=== PATIENT | male | born 2000 | race Caucasian/White ===

== ENCOUNTER 2020-08-20 11:14 | Emergency (ER) | payer OTHER ==
[~2020-08-20] VITALS: Ht 160 cm; Wt 54.0 kg
[2020-08-20 11:21] VITALS: BP 124/81
== END 2020-08-20 12:56 | disposition home or self-care (01) ==
LOC: ER 11:14
DX: Z13.9 Encounter for screening, unspecified (principal)
CPT/HCPCS: 99283